=== PATIENT | male | born 1965 | race Caucasian/White ===

== ENCOUNTER → 2022-02-03 14:07 | Outpatient (CLI) | payer BC, SELFPAY ==
--- NOTE | 2022-02-03 14:15 | XR_ITS ---
FINAL REPORT CLINICAL HISTORY: RT lat KNEE PAIN FINDINGS: RIGHT KNEE Three views of the right knee reveal no evidence of fracture or dislocation. The bony alignment is normal. There are mild degenerative changes. There is no evidence of joint effusion. No localized soft tissue abnormality is identified. IMPRESSION: Degenerative changes with no acute abnormality identified. Reviewed, Interpreted and Dictated by Jerry Min III, MD Transcribed by Ashlee Elliott Authenticated by Jerry Min III, MD on 02/03/2022 03:13:23 PM [facility]
== END ==
PROVIDERS: PCP Family Medicine; Visit Provider Nurse Practitioner Family
DX: M25.561 Pain in right knee (principal)
CPT/HCPCS: 73562

== ENCOUNTER → 2022-10-18 13:30 | Outpatient (CLI) | payer BC, SELFPAY ==
--- NOTE | 2022-10-18 13:31 | MR_ITS ---
FINAL REPORT TECHNIQUE: Multiplanar MR without contrast CLINICAL HISTORY: right LATERAL knee pain FINDINGS: Articular cartilage: Moderate diffuse thinning of the articular cartilage. Marrow signal: A few small foci of subchondral marrow edema and cystic change of the lateral femoral condyle related to arthritic disease. Joint fluid: Small joint effusion. Menisci: Small longitudinal tear near the root of the posterior horn of the medial meniscus. Lateral meniscus is intact. Ligaments: Collateral and cruciate ligaments intact IMPRESSION: Tri compartment degenerative change. Small tear posterior horn medial meniscus. Reviewed, Interpreted and Dictated by Silas Barker MD Transcribed by Flaquita Medina Authenticated and [facility]
== END ==
LOC: RAD 13:31
PROVIDERS: PCP Family Medicine; Visit Provider Orthopaedic Surgery
DX: M25.561 Pain in right knee (principal); M25.461 Effusion, right knee
CPT/HCPCS: 73721